=== PATIENT | female | born 1995 | race Caucasian/White ===

== ENCOUNTER 2019-12-11 10:51 | Emergency (ER) | payer OTHER, SELFPAY ==
--- NOTE | ~2019-12-11 | XR_ITS ---
XR ankle LT min 3V DATE: 12/11/2019 11:12 INDICATION: Generalized left ankle pain after inversion injury. TECHNIQUE: 4 views COMPARISON: None FINDINGS: Slight posterior calcaneal enthesopathy. No fracture or dislocation of the ankle or disruption of the ankle mortise. No periosteal reaction or bone destruction. IMPRESSION: No fracture or dislocation of the ankle Reviewed, dictated and finalized at location A.
[2019-12-11 10:59] VITALS: BP 138/76; PULSE 89; RESP 18; TEMP 36.9; O2SAT 99
--- NOTE | 2019-12-11 11:09 | ED.GENADULT ---
HPI - General Adult General Chief complaint: Extremity Injury, Lower Stated complaint: left ankle pain/swollen Time Seen by Provider: 12/11/19 11:09 Source: patient Mode of arrival: ambulatory Limitations: no limitations History of Present Illness HPI narrative: 24-year-old female patient presents to the [facility] with complaints of left ankle pain that started yesterday. Patient states that she was walking into her yard and stepped into a hole and rolled her ankle. Patient states that she went to go sit down in her car and rest her ankle when her boyfriend came up and accidentally slammed the car door against her left ankle pinning in between the car and the door. Patient states she did not take anything for her pain. Patient states she has iced it and states that her mother came over and wrapped it with an Tuan wrap. Patient states that she has been having pain when walking. Denies any numbness or tingling at this time. Related Data Home Medications Medication Instructions Recorded Confirmed omeprazole 40 mg PO DAILY 12/11/19 12/11/19 sertraline [Zoloft] 25 mg PO DAILY 12/11/19 12/11/19 Allergies Allergy/AdvReac Type Severity Reaction Status Date / Time amoxicillin [From Augmentin] Allergy Unknown Verified 12/11/19 11:17 clavulanic acid Allergy Unknown Verified 12/11/19 11:17 [From Augmentin] Penicillins Allergy Rash Verified 12/11/19 11:18 Review of Systems Review of Systems: Narrative: CONSTITUTIONAL: Denies fever, chills, or sweats. EYES: Denies visual changes, redness, or discharge. ENT: Denies rhinorrhea, congestion, sore throat, or otalgia. CARDIOVASCULAR: Denies chest pain, palpitations, or edema. RESPIRATORY: Denies cough or dyspnea. GASTROINTESTINAL: Denies abdominal pain, nausea, vomiting, or diarrhea. GENITOURINARY: Denies dysuria or hematuria. SKIN: Denies rash or itching. MUSCULOSKELETAL: Denies back pain, joint pain, or myalgia. Positive left ankle pain since yesterday NEUROLOGIC: Denies headache, numbness, or weakness. PSYCHIATRIC: Denies anxiety or depression. PMFSH Comments At the time of my signature I agree with nursing past medical history, surgical, social, and family history. There is no relevant family history pertinent to the presenting complaint. Exam Narrative: Exam Narrative: GENERAL: Well-appearing, well-nourished, and in no acute distress. HEAD: Normocephalic, atraumatic. EYES: PERRLA and EOMI. ENT: Nares clear, no rhinorrhea or epistaxis. Mucous membranes moist. NECK: Supple. No lymphadenopathy CHEST: Clear to auscultation. No respiratory distress. HEART: Regular rate and rhythm. No murmur heard. Normal peripheral pulses. ABDOMEN: Soft, nontender, nondistended, normal active bowel sounds. EXTREMITIES: Patient is able to bear weight and ambulate but has increase in pain to the left ankle. The L ankle is without obvious asymmetry or deformity when compared to the L ankle. Patient can flex/extend but has increase in pain to left ankle, normal invert/mani. No obvious surface trauma, ecchymosis. soft tissue swelling noted to the left lateral side. Bony tenderness to palpation over the medial and lateral malleolus. Pain over the talofibular ligament, no pain on palpation to the posterior talofibular ligament, calcaneofibular ligament nontender and without swelling. No tenderness or deformity of the midfoot or over the proximal fifth metatarsal. Good DP and posterior tibial pulses and sensation to light touch normal. Talar tilt test is negative for ligament laxity to valgus or vargus stress. Negative anterior draw. Peroneal nerve is intact with strong eversion and plantar flexion. SKIN: Warm, dry, no rash. NEURO: No focal deficits. Alert and oriented x3. Course Reevaluation(s) Reevaluation #1: Notify patient that her x-ray is negative for any fractures. Discussed with her this is most likely a sprain. Discussed with her we will go ahead and wrap her ankle with an Tuan wrap and provide he
--- NOTE | 2019-12-11 11:22 | PC.NURSE ---
PT DECLINED WHEELCHAIR
== END 2019-12-11 11:35 | disposition home or self-care (01) ==
PROVIDERS: Emergency Provider Nurse Practitioner Family
DX: S93.402A Sprain of unspecified ligament of left ankle, initial encounter (principal); K21.9 Gastro-esophageal reflux disease without esophagitis; F41.9 Anxiety disorder, unspecified; F32.9 Major depressive disorder, single episode, unspecified; R03.0 Elevated blood-pressure reading, without diagnosis of hypertension; X50.9XXA Other and unspecified overexertion or strenuous movements or postures, initial encounter
CPT/HCPCS: 73610; 99213; G0463

== ENCOUNTER 2024-04-22 08:42 | Emergency (ER) | payer OTHER, SELFPAY ==
--- NOTE | ~2024-04-22 | XR_ITS ---
EXAMINATION: XR chest 2V DATE: 04/22/2024 09:23 INDICATION: Subcostal pain with deep breathing TECHNIQUE: PA and lateral views of the chest were obtained. COMPARISON: None FINDINGS: The lungs are clear with no focal airspace opacities, pulmonary edema, pleural effusion or pneumothor ax. The cardiomediastinal silhouette is normal. Moderate thoracic spondylosis. IMPRESSION: 1. No acute cardiopulmonary disease. Reviewed, dictated and finalized at location A.
[2024-04-22 08:50] VITALS: BP 129/66; PULSE 62; RESP 17; TEMP 37; O2SAT 100
--- NOTE | 2024-04-22 08:54 | ED.URI ---
HPI - URI/Sore Throat General Chief Complaint: Upper Respiratory Infection Stated Complaint: Hurts to breathe under ribs Time Seen by Provider: 04/22/24 09:00 Source: patient, RN notes reviewed and old records reviewed Mode of arrival: ambulatory Limitations: no limitations History of Present Illness HPI Narrative: 28-year-old female who presents to [facility] with complaints of pain to the anterior and lateral aspect of ribs since Monday when taking a deep breath or with cough. Patient denies any fevers, sore throat, no body aches no headaches or any sinus congestion or drainage or any acute cough. Patient reports she has taken Tylenol and also some ibuprofen for her discomfort. Patient reports past history of pleurisy. MD elicited complaint: other (pain with deep breathing) Pertinent past history: other (Pleurisy) Onset (ago): day(s) (4) Pain scale (0-10): 4 Able to tolerate fluids by mouth: Yes Exacerbating factors: deep breaths and other (any cough) Treatments prior to arrival: acetaminophen and ibuprofen Related Data Home Medications Medication Instructions Recorded Confirmed norgestimate 0.25 mg-ethinyl 1 tablet PO DAILY 04/22/24 04/22/24 estradiol 35 mcg tablet (Karen) Allergies Allergy/AdvReac Type Severity Reaction Status Date / Time amoxicillin [From Augmentin] Allergy Severe Anaphylaxis Verified 04/22/24 09:02 clavulanic acid Allergy Severe Anaphylaxis Verified 04/22/24 09:02 [From Augmentin] Penicillins Allergy Intermediate Rash Verified 04/22/24 09:02 Review of Systems Review of Systems: CONSTITUTIONAL: Denies malaise, chills, sweats, or fever. EYES: Denies visual changes, redness, or discharge. ENT: Reports no rhinorrhea, congestion, sinus pain, no otalgia and no sore throat. CARDIOVASCULAR: Denies chest pain, palpitations, or edema. Reports anterior and lateral rib pain with deep breathing and cough RESPIRATORY: Reports some dry cough.? Denies dyspnea. GASTROINTESTINAL: Denies abdominal pain, nausea, vomiting, diarrhea SKIN: Denies rash or itching. MUSCULOSKELETAL: Denies myalgia. NEUROLOGIC: Denies headache. All systems reviewed & are unremarkable except as noted in HPI and below PMFSH Past Medical History Medical History (Updated 04/22/24 @ 09:31 by Kya Poe NP) GERD (gastroesophageal reflux disease) Pleurisy Surgical History Surgical History (Updated 04/22/24 @ 09:13 by Kya Poe NP) H/O tubal ligation Hx of cholecystectomy Social History Social History (Updated 04/22/24 @ 09:13 by Kya Poe NP) Smoking status: Never smoker Alcohol intake: former Alcohol use details: none upsets stomach Substance use type: does not use Living arrangements: with family Gender identity (if verbalized by the patient): Female Comments At time of signature, agree with nursing past medical, surgical, social and family history. There is no relevant family history pertinent to the presenting complaint Exam Narrative: GENERAL: Well-appearing, well-nourished, and in no acute distress. HEAD: Normocephalic EYES: PERRLA, conjunctivae clear ENT: Nares clear, turbinates edematous and erythematous, clear discharge. Mucous membranes moist. TM pearly cosme with dull light reflex bilaterally; no tragal tenderness. Oropharynx erythematous without lesions. Tonsils not enlarged and without exudate, no drooling, no hoarseness, no trismus, uvula midline. NECK: Supple. No lymphadenopathy CHEST: Clear to auscultation, breath sounds equal. No wheezing, rhonchi, rales, or stridor. No respiratory distress, speaks in full sentences.no acute cough noted, SAO2 100% on room air, reported pain to anterior and lateral rib area with deep breathing and cough HEART: Regular rate and rhythm. No murmur heard. SKIN: Warm, dry, no rash. NEURO: Alert and oriented x3. PSYCH: Normal mood and affect Course Course Emergency Course: Patient is awar
== END 2024-04-22 09:35 | disposition home or self-care (01) ==
PROVIDERS: Emergency Provider Registered Nurse; PCP Physician Assistant
DX: M94.0 Chondrocostal junction syndrome [Tietze] (principal); K21.9 Gastro-esophageal reflux disease without esophagitis
CPT/HCPCS: 71046; 99213; G0463